=== PATIENT | male | born 1990 | race Caucasian/White ===

== ENCOUNTER 2020-08-23 15:52 | Emergency (ER) | payer MEDICAID, OTHER ==
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
== END 2020-08-23 17:40 | disposition home or self-care (01) ==
LOC: JP.ED 15:52
DX: S59.912A Unspecified injury of left forearm, initial encounter (principal); F32.9 Major depressive disorder, single episode, unspecified; Z88.1 Allergy status to other antibiotic agents; Z88.8 Allergy status to other drugs, medicaments and biological substances; Z79.899 Other long term (current) drug therapy; V49.9XXA Car occupant (driver) (passenger) injured in unspecified traffic accident, initial encounter
CPT/HCPCS: 99282; 99283